=== PATIENT | female | born 1980 | race Caucasian/White ===

== ENCOUNTER → 2025-05-09 13:39 | Outpatient (REF) | payer OTHER, SELFPAY | LOC: WDC 13:39 | PROVIDERS: ATTENDING PHYSICIAN Advanced Practice Midwife; FAMILY PHYSICIAN Physician Assistant Medical | DX: Z12.31 Encounter for screening mammogram for malignant neoplasm of breast (principal) | CPT/HCPCS: 77063; 77067 ==

== ENCOUNTER → 2025-05-22 08:35 | Outpatient (REF) | payer OTHER, SELFPAY | LOC: WDC 08:35 | PROVIDERS: ATTENDING PHYSICIAN Advanced Practice Midwife; FAMILY PHYSICIAN Physician Assistant Medical | DX: R92.8 Other abnormal and inconclusive findings on diagnostic imaging of breast (principal) | CPT/HCPCS: 76642 ==

== ENCOUNTER → 2025-06-01 12:15 | Outpatient (REF) | payer OTHER, SELFPAY ==
--- NOTE | 2025-06-01 13:30 | OID.BR.INTR ---
HORACIOD Breast Navigator - Initial
- -
Date of Contact: 06/01/25
Met with patient. Patient given written information on navigator services available at [facility]. Will follow up as needed per protocol.
== END ==
LOC: WDC 12:15
PROVIDERS: ATTENDING PHYSICIAN Advanced Practice Midwife; FAMILY PHYSICIAN Physician Assistant Medical
DX: N63.22 Unspecified lump in the left breast, upper inner quadrant (principal)
CPT/HCPCS: 19000; 19083; 76942; 88112; 88305; 88341; 88342; 88360; A4648

== ENCOUNTER → 2025-06-12 16:26 | Outpatient (REF) | payer OTHER, SELFPAY | LOC: MRI 3T 16:26 | PROVIDERS: ATTENDING PHYSICIAN Surgery; FAMILY PHYSICIAN Physician Assistant Medical | DX: C50.412 Malignant neoplasm of upper-outer quadrant of left female breast (principal); Z17.0 Estrogen receptor positive status [ER+] | CPT/HCPCS: 77049; A9585 ==

== ENCOUNTER → 2025-06-19 14:29 | Outpatient (REF) | payer OTHER, SELFPAY | LOC: WDC 14:29 | PROVIDERS: ATTENDING PHYSICIAN Surgery; FAMILY PHYSICIAN Physician Assistant Medical | DX: R92.8 Other abnormal and inconclusive findings on diagnostic imaging of breast (principal) | CPT/HCPCS: 76642 ==

== ENCOUNTER → 2025-07-01 09:26 | Outpatient (REF) | payer OTHER, SELFPAY | LOC: RCS 09:26 | PROVIDERS: ATTENDING PHYSICIAN Internal Medicine Hematology & Oncology; FAMILY PHYSICIAN Physician Assistant Medical | DX: C50.212 Malignant neoplasm of upper-inner quadrant of left female breast (principal) | CPT/HCPCS: 93306 ==

== ENCOUNTER 2025-07-10 05:58 | Day surgery (SDC) | payer OTHER, SELFPAY ==
[2025-07-03 09:23] LABS: Hematocrit 40.6 % (37.0-47.0); Hemoglobin 13.5 g/dL (12.0-16.0); Mean Corp Hgb Conc. 33.3 g/dL (33.0-37.0); Mean Corpuscular Volume 93.8 fL (81.0-99.0); Platelet Count 262 10^3/uL (130-400); Red Cell Dist. Width 12.0 % (11.5-14.5)
[2025-07-03 12:26] VITALS: BMI 19.2
[2025-07-03 13:09] LABS: ALT (SGPT) < 10 U/L (0-35); AST (SGOT) 21 U/L (14-36); Albumin 4.9 g/dl (3.5-5.0); Alkaline Phosphatase 39 U/L (38-126); Blood Urea Nitrogen 20 mg/dl (7-17); Calcium 9.1 mg/dl (8.4-10.2); Carbon Dioxide 27 mmol/L (22-30); Chloride 104 mmol/L (98-107); Estimated Creatinine Clearance 83 ml/min; Glucose 73 mg/dl (70-99); Sodium 140 mmol/L (135-145); Total Protein 7.7 g/dl (6.3-8.2); eGFR > 60.00
[2025-07-03 13:33] LABS: Potassium 4.1 mmol/L (3.5-5.1)
[2025-07-03 15:14] LABS: Vitamin D, 25-OH*** 47.6 ng/mL (30-80)
[2025-07-03 15:32] LABS: Prealbumin (Transthyretin) 22.6 mg/dl (17.6-36.0)
[2025-07-10 06:50] VITALS: BMI 19.2
[2025-07-10] MEDS: NSS 1000 IV (06:59)
[2025-07-10 07:01] VITALS: BP 102/63
--- NOTE | 2025-07-10 07:09 | W.SUR.PREOP ---
Pre-Operative Surgical Note
-
I have examined this patient prior to the performance of the scheduled procedure.
The patient's condition is unchanged from the time of the current History and
Physical and the patient is able to undergo the scheduled procedure.
[2025-07-10 08:30] VITALS: BP 113/66
--- NOTE | 2025-07-10 08:40 | W.IMMPOSTOP ---
Surgical Immed Post Op Note
-
Primary Surgeon: Leah
Assisting Surgeon: None
Pre-op Diagnosis: Left breast ca
Post-op Diagnosis: Left breast ca
Procedure Performed: Insertion right portacath
Anesthesia Type: TIVA
Specimen / Cultures: None
Estimated Blood Loss: 2cc
Complications: None
Operative Findings: None
--- NOTE | 2025-07-10 08:41 | OR.RPT ---
Operative Report
Operative Report
Date of procedure: 07/10/2025
Surgeon: Leah
Preoperative diagnosis: Left breast carcinoma
Postoperative diagnosis: Left breast carcinoma
Procedure: Insertion right Port-A-Cath
The patient is a 44-year-old female with left breast carcinoma requiring adjuvant chemotherapy. She presents for right Port-A-Cath placement.
The patient presented to same-day surgical services where she was prepped. She verified site and procedure and DVT and antibiotic prophylaxis were provided. She was transferred to the operating room.
In Trendelenburg position with shoulder roll in place intravenous sedation was delivered. The right upper chest and neck were prepped and draped in the usual sterile fashion. An appropriate timeout was performed by all team members.
All tissues were anesthetized with 1% lidocaine plain. Via Seldinger technique right subclavian vein was entered percutaneously and guidewire was advanced under fluoroscopic guidance into the superior vena cava. The needle was removed and the wire
was securely attached to the drapes. Inferior to the exit site of the guidewire a subcutaneous pocket was fashioned using the blade and cautery. A low-profile single-lumen port flushed with heparin was placed in the pocket and securely attached to
the catheter. The catheter was transferred to the exit site of the guidewire and under fluoroscopic guidance was cut to a length of 16 cm. Dilator was used to dilate the wire tract. Wire and dilator were removed and the catheter passed easily
through the tear-away sheath which was removed. Good position of the tip in the superior vena cava was noted. The port aspirated and flushed well. The patient was taken out of Trendelenburg position. Hemostasis was verified. Marcaine 0.5% plain
was instilled into all tissues.
The wound was closed using simple interrupted 3-0 plain of subcutaneous tissue and a running subcuticular 4-0 Monocryl on skin. Surgical glue and a sterile compressive dressing were applied. Patient was transferred to the recovery room where stat
portable chest x-ray will be performed. All sponge needle and instrument counts were correct.
([id number])
[2025-07-10 08:45] VITALS: BP 118/73
[2025-07-10 09:00] VITALS: BP 106/92
== END 2025-07-10 09:30 | disposition home or self-care (01) ==
LOC: SDS 05:58
PROVIDERS: ATTENDING PHYSICIAN Surgery; FAMILY PHYSICIAN Physician Assistant Medical
DX: C50.912 Malignant neoplasm of unspecified site of left female breast (principal)
CPT/HCPCS: 36561; 36415; 71045; 76000; 80053; 82306; 84134; 85027; C1788

== ENCOUNTER 2025-09-17 06:50 | Outpatient (RCR) | payer OTHER, SELFPAY | END 2025-09-17 23:59 | disposition home or self-care (01) | LOC: RPT 06:50 | PROVIDERS: ATTENDING PHYSICIAN Internal Medicine Cardiovascular Disease; FAMILY PHYSICIAN Physician Assistant Medical | DX: M62.81 Muscle weakness (generalized) (principal); Z73.6 Limitation of activities due to disability | CPT/HCPCS: 97163; 97530 ==

== ENCOUNTER → 2025-10-05 07:26 | Outpatient (REF) | payer OTHER, SELFPAY | LOC: RCS 07:26 | PROVIDERS: ATTENDING PHYSICIAN Internal Medicine Cardiovascular Disease; FAMILY PHYSICIAN Physician Assistant Medical | DX: Z51.81 Encounter for therapeutic drug level monitoring (principal); Z85.3 Personal history of malignant neoplasm of breast; R42 Dizziness and giddiness; R03.1 Nonspecific low blood-pressure reading | CPT/HCPCS: 93306; 93356 ==

== ENCOUNTER 2025-10-16 08:10 | Outpatient (RCR) | payer OTHER, SELFPAY | END 2025-10-16 23:59 | disposition home or self-care (01) | LOC: RPT 08:10 | PROVIDERS: ATTENDING PHYSICIAN Internal Medicine Cardiovascular Disease; FAMILY PHYSICIAN Physician Assistant Medical | DX: C50.212 Malignant neoplasm of upper-inner quadrant of left female breast (principal); R53.0 Neoplastic (malignant) related fatigue; Z73.6 Limitation of activities due to disability; M62.81 Muscle weakness (generalized) | CPT/HCPCS: 97110; 97112; 97530 ==

== ENCOUNTER 2025-10-29 09:06 | Outpatient (RCR) | payer OTHER, SELFPAY | END 2025-10-29 23:59 | disposition home or self-care (01) | LOC: RPT 09:06 | PROVIDERS: ATTENDING PHYSICIAN Internal Medicine Cardiovascular Disease; FAMILY PHYSICIAN Physician Assistant Medical | DX: C50.212 Malignant neoplasm of upper-inner quadrant of left female breast (principal); R53.0 Neoplastic (malignant) related fatigue; M62.81 Muscle weakness (generalized); Z73.6 Limitation of activities due to disability | CPT/HCPCS: 97110; 97530 ==